=== PATIENT | female | born 1970 | race African-American/Black ===

== ENCOUNTER 2021-08-25 18:39 | Emergency (ER) | payer BC ==
[~2021-08-25] VITALS: Ht 170.2 cm; Wt 90.0 kg
[2021-08-25] MEDS ORDERED: IV RINGERS,LACTATED 1000ML 1,000 ML IV ONE (19:00)
[2021-08-25] MEDS ORDERED: ONDANSETRON PF 4 MG/2 ML VIAL. IVP ONE (19:00)
[2021-08-25] MEDS ORDERED: FAMOTIDINE 20 MG/2 ML VIAL IVP ONE (19:00)
[2021-08-25] MEDS ORDERED: MORPHINE SULFATE 4 MG/ML INJ. IVP ONE (19:00)
--- NOTE | 2021-08-25 19:01 | EKG ---
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
[2021-08-25 19:02] LABS: BASO % 0 % (0-3); EOS # 0.1 x10^3/uL (0.0-0.7); EOS % 0 % (0-3); HEMATOCRIT 37.6 % (36.0-47.0); HEMOGLOBIN 12.1 g/dL (12.0-15.5); LYMPH # 1.6 x10^3/uL (1.0-4.8); LYMPH % 8 % (24-48); MEAN CORPUSCULAR HEMOGLOBIN 26 pg (25-35); MEAN CORPUSCULAR HGB CONC 32 g/dL (31-37); MEAN CORPUSCULAR VOLUME 82 fL (79-100); MONO # 0.8 x10^3/uL (0.0-1.1); MONO % 4 % (0-9); NEUT # 16.8 x10^3/uL (1.8-7.7); NEUT % 87 % (31-73); PLATELET COUNT 275 x10^3/uL (140-400); RED BLOOD COUNT 4.59 x10^6/uL (3.50-5.40); RED CELL DISTRIBUTION WIDTH 15.9 % (11.5-14.5); WHITE BLOOD COUNT 19.3 x10^3/uL (4.0-11.0)
[2021-08-25 19:16] LABS: CREATININE 0.8 mg/dL (0.6-1.0); GFR 76.2; POTASSIUM 3.2 mmol/L (3.5-5.1)
--- NOTE | 2021-08-25 19:18 | PHYS DOC ---
Past Medical History Additional Past Medical Histor: uterine fibroids, ovarian cyst Past Surgical History: No Surgical History Adult General Chief Complaint Chief Complaint: ABDOMINAL PAIN HPI HPI The patient is a 50-year-old female with a history of hypertension and who is otherwise healthy. She is a never smoker. 3 days ago she presented to the [facility] emergency department in [place] for evaluation of left flank pain which had radiated down to the left lower quadrant of the abdomen. She was evaluated with labs and CT imaging. Labs showed a white count of 12.9, hemoglobin of 12.8 and were otherwise unremarkable. CT of the abdomen and pelvis with IV contrast showed a 3.6 cm left ovarian cyst and findings felt to be suspicious for endometritis, possibly secondary to a slightly malpositioned IUD. Patient was started on empiric doxycycline and Flagyl for endometritis and referred back to her associate professor of counseling to have the IUD addressed. This morning she had her IUD removed and a Nexplanon placed. Patient presents for evaluation of about 1 hour of sharp, focal epigastric discomfort, nonradiating and severe. Associated nausea without vomiting. No associated fevers, upper respiratory congestion/rhinorrhea, cough, sore throat, shortness of breath or chest pain of any kind, lower abdominal pain of any kind, flank pain, midline back pain, dysuria, hematuria, polyuria or oliguria, unusual vaginal discharge or bleeding, changes in bowel habits. Patient is alert and appropriately interactive but in some significant discomfort due to poorly controlled epigastric pain upon initial evaluation here in the emergency department. Vital signs are appropriate here and the patient is in no acute distress. Review of Systems Review of Systems A 12 point review of systems was completed and was negative except where noted in HPI above. Current Medications Current Medications Current Medications Medications (Trade) Dose Ordered Sig/Jonny Start Time Stop Time Status Last Admin Dose Admin Famotidine (Pepcid Vial) 20 mg 1X ONCE 08/25/21 19:00 08/25/21 19:01 DC 08/25/21 19:18 20 MG Info (CONTRAST GIVEN -- Rx MONITORING) 1 each PRN DAILY PRN 08/25/21 21:15 08/27/21 21:14 Iohexol (Omnipaque 350 Mg/ml) 100 ml 1X ONCE 08/25/21 21:15 08/25/21 21:16 DC 08/25/21 21:38 100 ML Morphine Sulfate (Morphine Sulfate) 4 mg 1X ONCE 08/25/21 19:00 08/25/21 19:01 DC 08/25/21 19:18 4 MG Multi-Ingredient Mouthwash/Gargle (Gi Cocktail) 20 ml 1X ONCE 08/25/21 20:30 08/25/21 20:31 DC 08/25/21 20:40 20 ML Ondansetron HCl (Zofran) 4 mg 1X ONCE 08/25/21 19:00 08/25/21 19:01 DC 08/25/21 19:18 4 MG Potassium Chloride (Klor-Con) 40 meq 1X ONCE 08/25/21 22:45 08/25/21 22:46 DC 08/25/21 23:02 40 MEQ Ringer's Solution 1,000 ml @ 999 mls/hr 1X ONCE 08/25/21 19:00 08/25/21 20:00 DC 08/25/21 19:18 999 MLS/HR Allergies Allergies Allergies Coded Allergies Type Severity Reaction Last Updated Verified No Known Drug Allergies 08/25/21 No Physical Exam Physical Exam 50-year-old female appearing nontoxic and in no acute distress. Head is normocephalic and atraumatic. Neck is supple and nontender. Oropharynx is moist. Lungs are clear to auscultation at all stations. There is a normal S1 and S2 without rubs or gallops and capillary refill is appropriate, less than 2 seconds globally. Abdomen is soft, nondistended and with mild focal epigastric tenderness to palpation without rebound or guarding. Very mild right upper quadrant tenderness to palpation without rebound or guarding. No lower quadrant abdominal tenderness to palpation. Skin is warm and dry without cyanosis, clubbing or edema. Psychiatrically, the patient demonstrates appropriate mood and affect and is alert. Evaluation of the extremities reveals BUEs and BLEs neurovascularly intact distally with strength out of 5, sensation intact light touch in all nerve distributions, radial, DP and PT pulses 2+ and equal bilaterally, capillary refill less than 2 seconds, hands and feet warm and well- perfused. No dependent peripheral edema distally. No calf tenderness or swelling bilaterally. Homans test is negative bilaterally. Current Patient Data Vital Signs Vital Signs Date Time Temp Pulse Resp B/P (MAP) Pulse Ox O2 Delivery O2 Flow Rate FiO2 08/25/21 22:38 70 159/76 (103) 100 Room Air 08/25/21 19:18 16 08/25/21 18:40 97.4 97.4 Lab Values Laboratory Tests Test 08/25/21 18:45 08/25/21 19:26 08/25/21 22:57 White Blood Count 19.3 x10^3/uL (4.0-11.0) H Red Blood Count 4.59 x10^6/uL (3.50-5.40) Hemoglobin 12.1 g/dL (12.0-15.5) Hematocrit 37.6 % (36.0-47.0) Mean Corpuscular Volume 82 fL (79-100) Mean Corpuscular Hemoglobin 26 pg (25-35) Mean Corpuscular Hemoglobin Concent 32 g/dL (31-37) Red Cell Distribution Width 15.9 % (11.5-14.5) H Platelet Count 275 x10^3/uL (140-400) Neutrophils (%) (Auto) 87 % (31-73) H Lymphocytes (%) (Auto) 8 % (24-48) L Monocytes (%) (Auto) 4 % (0-9) Eosinophils (%) (Auto) 0 % (0-3) Basophils (%) (Auto) 0 % (0-3) Neutrophils # (Auto) 16.8 x10^3/uL (1.8-7.7) H Lymphocytes # (Auto) 1.6 x10^3/uL (1.0-4.8) Monocytes # (Auto) 0.8 x10^3/uL (0.0-1.1) Eosinophils # (Auto) 0.1 x10^3/uL (0.0-0.7) Basophils # (Auto) 0.0 x10^3/uL (0.0-0.2) Segmented Neutrophils % 81 % (35-66) H Band Neutrophils % 4 % (0-9) Lymphocytes % 12 % (24-48) L Monocytes % 3 % (0-10) Toxic Granulation Slight Toxic Vacuolation Slight Platelet Estimate Adequate (ADEQUATE) Sodium Level 140 mmol/L (136-145) Potassium Level 3.2 mmol/L (3.5-5.1) L Chloride Level 104 mmol/L (98-107) Carbon Dioxide Level 25 mmol/L (21-32) Anion Gap 11 (6-14) Blood Urea Nitrogen 14 mg/dL (7-20) Creatinine 0.8 mg/dL (0.6-1.0) Estimated GFR (Cockcroft-Gault) 76.2 BUN/Creatinine Ratio 18 (6-20) Glucose Level 142 mg/dL (70-99) H Calcium Level 9.0 mg/dL (8.5-10.1) Total Bilirubin 0.8 mg/dL (0.2-1.0) Aspartate Amino Transferase (AST) 30 U/L (15-37) Alanine Aminotransferase (ALT) 29 U/L (14-59) Alkaline Phosphatase 70 U/L (46-116) Troponin I High Sensitivity 5 ng/L (4-50) 5 ng/L (4-50) Total Protein 7.6 g/dL (6.4-8.2) Albumin 3.4 g/dL (3.4-5.0) Albumin/Globulin Ratio 0.8 (1.0-1.7) L Lipase 43 U/L (73-393) L Urine Color Yellow Urine Clarity Cloudy Urine pH 7.0 (<5.0-8.0) Urine Specific [place] 1.020 (1.000-1.030) Urine Protein Negative mg/dL (NEG-TRACE) Urine Glucose (UA) Negative mg/dL (NEG) Urine Ketones (Stick) >=80 mg/dL (NEG) Urine Blood Large (NEG) Urine Nitrite Negative (NEG) Urine Bilirubin Negative (NEG) Urine Urobilinogen Dipstick 1.0 mg/dL (0.2 mg/dL) Urine Leukocyte Esterase Trace (NEG) Urine RBC Tntc /HPF (0-2) Urine WBC 1-4 /HPF (0-4) Urine Squamous Epithelial Cells Few /LPF Urine Bacteria 0 /HPF (0-FEW) Urine Mucus Slight /LPF Urine Test Negative (NEG) Laboratory Tests 08/25/21 18:45 Laboratory Tests 08/25/21 18:45 EKG EKG Sinus rhythm, rate 59, no acute ST elevation or depression, NE 190, QRS 100, QTc 418, EP interpretation. Nonischemic tracing, intervals appropriate. Radiology/Procedures Radiology/Procedures EXAMINATION: CTA chest, abdomen and pelvis with IV contrast. INDICATION:50 years, Female, upper abdominal pain, leukocytosis, IUD removed today. TECHNIQUE: Axial CTA images of the chest, abdomen and pelvis were obtained. MIP Coronal and sagittal reformatted Of the chest performed. Coronal and sagittal reformats of the abdomen and pelvis performed. COMPARISON: None. Exposure: One or more of the following individualized dose reduction techniques were utilized for this examination: 1. Automated exposure control 2. Adjustment of the mA and/or kV according to patient size 3. Use of iterative reconstruction technique. FINDINGS: CHEST: Visualized thyroid and esophagus are unremarkable. No lymphadenopathy in the chest by size criteria. Large calcified subcarinal lymph nodes. Normal cardiac size with no pericardial effusion. No coronary artery atherosclerotic calcifications. Normal caliber thoracic aorta and pulmonary arteries. Evaluation for pulmonary embolism is limited due to contrast bolus timing. No central pulmonary embolism to the proximal lobar level. Great vessels are patent. Central airways are patent. No focal consolidation, pleural effusion or pneumothorax. Dependent subsegmental atelectasis in bibasilar lungs. No suspicious pulmonary nodule. Calcified granulomas in the right middle lobe. ABDOMEN/PELVIS: Normal morphology of the liver with homogeneous enhancement. No suspicious focal hepatic lesion. There is a 2.5 cm fluid density lesion in subcapsular right hepatic lobe, likely simple cyst. Mild periportal edema. Contracted gallbladder which limits evaluation. No biliary ductal dilation. Unremarkable spleen and pancreas. No adrenal nodule. No hydronephrosis or nephrolithiasis in either kid lyle. Subcentimeter hypodensities in both renal cortices, too small to characterize. Small hiatal hernia. No bowel obstruction. Normal appendix. Normal caliber abdominal aorta. Mesenteric arteries and portal veins are patent. No pneumoperitoneum or ascites. No lymphadenopathy in the abdomen or pelvis by size criteria. Enlarged uterus with lobulated contour and ill-defined masses obscuring endomet rium. No pelvic free fluid. There is a 3.8 cm benign-appearing left adnexal cyst. MUSCULOSKELETAL STRUCTURES: No acute osseous process or suspicious lesion. IMPRESSION: 1. Evaluation for pulmonary embolism is limited due to contrast bolus timing. No evidence of central pulmonary embolism to the proximal lobar level. 2. Enlarged uterus with lobulated contour and ill-defined masses, probably representing fibroid changes. Correlate with patient history and consider pelvic ultrasound. 3. A 3.8 cm benign-appearing left adnexal cyst. Benign, no follow-up required. White paper of the ACR incidental findings, committe II on adnexal findings ((J Am Leoncio Radiol 2013;10:675-68). Electronically signed by: Mellissa Dodd MD (08/25/2021 9:58 PM) LEIGHANNBOB DICTATED and SIGNED BY: MELLISSA DODD MD DATE: 08/25/[id number] 0 EXAMINATION: US ABDOMEN LIMITED INDICATION: 50 years, Female, right upper quadrant/epigastric pain. COMPARISON: None TECHNIQUE: Grayscale, color Doppler and limited spectral Doppler images of the right upper quadrant were obtained. FINDINGS: LIVER: ECHOGENICITY: Normal. PARENCHYMA: Homogeneous echotexture. No discrete focal lesion. INTRAHEPATIC BILE DUCTS: Nondilated. PORTAL VEIN: Patent with normal hepatopedal flow. GALLBLADDER: GALLBLADDER WALL THICKNESS: 2 mm. MORPHOLOGY: Normal morphology. No pericholecystic free fluid. LUMEN: Normal. COMMON BILE DUCT DIAMETER: 2.7 mm. RIGHT KIDNEY: MEASURES: 10.6 cm in length. MORPHOLOGY/PARENCHYMA: Normal corticomedullary differentiation with no shadowing calculus or discrete masses. COLLECTING SYSTEM: No hydronephrosis. PANCREAS: VISUALIZED PORTIONS: Entire. APPEARANCE: Within normal limits. OTHER: RETROPERITONEUM, INFERIOR VENA CAVA: Normal caliber. AORTA: Normal caliber. FLUID:No free fluid. IMPRESSION: Unremarkable right upper abdomen ultrasound. Electronically signed by: Mellissa Dodd MD (08/25/2021 9:13 PM) DAMIEN DICTATED and SIGNED BY: MELLISSA DODD MD DATE: 08/25/[id number] 0 EXAMINATION: Abdominal complete acute radiograph. VIEWS: Single view of the chest and 2 views of the abdomen COMPARISON: None INDICATION: 50 years, Female, right upper quadrant/epigastric pain. FINDINGS: Nonobstructive bowel gas pattern. No pneumoperitoneum.No abnormal intra- abdominal calcifications. Normal cardiac mediastinal silhouette. No focal consolidation, pleural effusion or pneumothorax. No acute process process. IMPRESSION: 1. No acute chest findings. 2. Nonobstructive bowel gas pattern. Electronically signed by: Mellissa Dodd MD (08/25/2021 8:04 PM) LEIGHANNBOB DICTATED and SIGNED BY: MELLISSA DODD MD DATE: 08/25/[id number] 0 Course & Med Decision Making Course & Med Decision Making We will start with labs, urine, acute abdominal series and right upper quadrant ultrasound and will give IV fluids and medication for nausea and discomfort as noted and will then reevaluate. 2245: Patient resting comfortably in bed on serial reassessments. Reports near complete resolution of her presenting abdominal discomfort. She feels much, much better after interventions as per flow sheet here in the emergency department. Patient does have a leukocytosis but otherwise labs, EKG and advanced imaging as above are without evidence of acute process and are without imaging or laboratory correlate either for her symptoms or for the leukocytosis. Potassium slightly low and has been repleted. Patient now tells me that she had started to eat some steak tips when she developed the abdominal discomfort. Possibility of some gastritis in the setting of recently starting doxycycline and Flagyl. No evidence of emergency condition is identified. In view of reassuring work-up in this well-appearing middle-aged female who is feeling much better, will discharge home to follow-up closely with primary care in the next 1 to 2 days. Will discharge with a course of Tylenol and Pepcid. Patient understands that if she feels worse instead of better or develops other new symptoms of concern that she should return to the emergency department right away for reevaluation. All questions are answered. Dragon Disclaimer Dragon Disclaimer This electronic medical record was generated, in whole or in part, using a voice recognition dictation system. Departure Departure Impression: Primary Impression: Acute epigastric pain Disposition: HOME / SELF CARE / HOMELESS Condition: IMPROVED Patient Instructions: Abdominal Pain (Nonspecific) Additional Instructions: Follow-up very closely with your primary care doctor in the office in the next 1 to 2 days for a reevaluation of your symptoms and discussion of next best steps in care. Drink plenty of fluids and get plenty of rest. Take a 500 mg extra strength Tylenol pill every 6 hours as needed for discomfort. Begin taking the Pepcid antiacid medication twice a day and take it for the next 2 weeks as prescribed to help prevent belly discomfort. Continue taking the antibiotics as already prescribed a few days ago and take them until they are completely gone. Return to the emergency department right away for worsening symptoms of any kind or with any other new symptoms of concern. Scripts Famotidine (ACID CONTROLLER) 20 Mg Tablet 20 MG PO BID for 14 Days, #28 TAB Prov: JC HERNANDEZ MD 08/25/21 Acetaminophen (ACETAMINOPHEN) 500 Mg Tablet 1 TAB PO PRN Q6HRS PRN for pain or fever, #50 TAB 0 Refills Prov: JC HERNANDEZ MD 08/25/21 JC HERNANDEZ MD Aug 25, 2021 19:18
[2021-08-25 19:22] LABS: ALBUMIN 3.4 g/dL (3.4-5.0); ALBUMIN/GLOBULIN RATIO 0.8 (1.0-1.7); TOTAL BILIRUBIN 0.8 mg/dL (0.2-1.0); TOTAL PROTEIN 7.6 g/dL (6.4-8.2)
[2021-08-25 19:32] LABS: % BANDS 4 % (0-9); % LYMPHS 12 % (24-48); % MONOS 3 % (0-10); % SEGS 81 % (35-66); PLT ESTIMATE ADEQUATE (ADEQUATE); TOXIC GRANULATION SLIGHT; TOXIC VACUOLATION SLIGHT
[2021-08-25 19:36] LABS: BILIRUBIN,URINE NEGATIVE (NEG); CLARITY,URINE CLOUDY; COLOR,URINE YELLOW; NITRITE,URINE NEGATIVE (NEG); PROTEIN,URINE NEGATIVE (NEG-TRACE)
[2021-08-25 19:44] LABS: BACTERIA,URINE 0 /HPF (0-FEW); RBC,URINE TNTC /HPF (0-2)
--- NOTE | 2021-08-25 20:06 | RAD ---
EXAMINATION: Abdominal complete acute radiograph. VIEWS: Single view of the chest and 2 views of the abdomen COMPARISON: None INDICATION: 50 years, Female, right upper quadrant/epigastric pain. FINDINGS: Nonobstructive bowel gas pattern. No pneumoperitoneum.No abnormal intra-abdominal calcifications. Nor mal cardiac mediastinal silhouette. No focal consolidation, pleural effusion or pneumothorax. No acut e process process. IMPRESSION: 1. No acute chest findings. 2. Nonobstructive bowel gas pattern. Electronically signed by: Tanisha Dodd MD (08/25/2021 8:04 PM) [facility]
[2021-08-25] MEDS ORDERED: LIDO:MAALOX 1:1 20 ML SINGLE DOSE. SWSW ONE (20:30)
[2021-08-25] MEDS ORDERED: CONTRAST GIVEN. MC PRN (21:15)
[2021-08-25] MEDS ORDERED: IOHEXOL 350 MG/ML 100 ML VIAL. IV ONE (21:15)
--- NOTE | 2021-08-25 21:16 | RAD ---
EXAMINATION: US ABDOMEN LIMITED INDICATION: 50 years, Female, right upper quadrant/epigastric pain. COMPARISON: None TECHNIQUE: Grayscale, color Doppler and limited spectral Doppler images of the right upper quadrant w ere obtained. FINDINGS: LIVER: ECHOGENICITY: Normal. PARENCHYMA: Homogeneous echotexture. No discrete focal lesion. INTRAHEPATIC BILE DUCTS: Nondilated. PORTAL VEIN: Patent with normal hepatopedal flow. GALLBLADDER: GALLBLADDER WALL THICKNESS: 2 mm. MORPHOLOGY: Normal morphology. No pericholecystic free fluid. LUMEN: Normal. COMMON BILE DUCT DIAMETER: 2.7 mm. RIGHT KIDNEY: MEASURES: 10.6 cm in length. MORPHOLOGY/PARENCHYMA: Normal corticomedullary differentiation with no shadowing calculus or discrete masses. COLLECTING SYSTEM: No hydronephrosis. PANCREAS: VISUALIZED PORTIONS: Entire. APPEARANCE: Within normal limits. OTHER: RETROPERITONEUM, INFERIOR VENA CAVA: Normal caliber. AORTA: Normal caliber. FLUID:No free fluid. IMPRESSION: Unremarkable right upper abdomen ultrasound. Electronically signed by: Tanisha Dodd MD (08/25/2021 9:13 PM) [facility]
[2021-08-25 21:46] LABS: U PREG PATIENT NEGATIVE (NEG)
--- NOTE | 2021-08-25 22:01 | RAD ---
EXAMINATION: CTA chest, abdomen and pelvis with IV contrast. INDICATION:50 years, Female, upper abdominal pain, leukocytosis, IUD removed today. TECHNIQUE: Axial CTA images of the chest, abdomen and pelvis were obtained. MIP Coronal and sagittal reformatted Of the chest performed. Coronal and sagittal reformats of the abdomen and pelvis performed. COMPARISON: None. Exposure: One or more of the following individualized dose reduction techniques were utilized for thi s examination: 1. Automated exposure control 2. Adjustment of the mA and/or kV according to patient size 3. Use of iterative reconstruction technique. FINDINGS: CHEST: Visualized thyroid and esophagus are unremarkable. No lymphadenopathy in the chest by size criteria. Large calcified subcarinal lymph nodes. Normal cardiac size with no pericardial effusion. No coronary artery atherosclerotic calcifications. Normal caliber thoracic aorta and pulmonary arteries. Evaluat ion for pulmonary embolism is limited due to contrast bolus timing. No central pulmonary embolism to the proximal lobar level. Great vessels are patent. Central airways are patent. No focal consolidation, pleural effusion or pneumothorax. Dependent subse gmental atelectasis in bibasilar lungs. No suspicious pulmonary nodule. Calcified granulomas in the r ight middle lobe. ABDOMEN/PELVIS: Normal morphology of the liver with homogeneous enhancement. No suspicious focal hepatic lesion. Ther e is a 2.5 cm fluid density lesion in subcapsular right hepatic lobe, likely simple cyst. Mild peripo rtal edema. Contracted gallbladder which limits evaluation. No biliary ductal dilation. Unremarkable spleen and pancreas. No adrenal nodule. No hydronephrosis or nephrolithiasis in either kidney. Subcen timeter hypodensities in both renal cortices, too small to characterize. Small hiatal hernia. No bowel obstruction. Normal appendix. Normal caliber abdominal aorta. Mesenteri c arteries and portal veins are patent. No pneumoperitoneum or ascites. No lymphadenopathy in the abd omen or pelvis by size criteria. Enlarged uterus with lobulated contour and ill-defined masses obscuring endometrium. No pelvic free f luid. There is a 3.8 cm benign-appearing left adnexal cyst. MUSCULOSKELETAL STRUCTURES: No acute osseous process or suspicious lesion. IMPRESSION: 1. Evaluation for pulmonary embolism is limited due to contrast bolus timing. No evidence of central pulmonary embolism to the proximal lobar level. 2. Enlarged uterus with lobulated contour and ill-defined masses, probably representing fibroid cronin ges. Correlate with patient history and consider pelvic ultrasound. 3. A 3.8 cm benign-appearing left adnexal cyst. Benign, no follow-up required. White paper of the ACR incidental findings, committe II on adnexal findings ((J Am Leoncio Radiol 2013;1 0:675-68). Electronically signed by: Tanisha Dodd MD (08/25/2021 9:58 PM) [facility]
[2021-08-25 22:38] VITALS: BP 159/76
[2021-08-25] MEDS ORDERED: POTASSIUM CHLORIDE 20 MEQ TABLET.ER. PO ONE (22:45)
[2021-08-25] MEDS ORDERED: ACET500T68 PO (22:55)
[2021-08-25] MEDS ORDERED: FAMO-54 PO (22:55)
== END 2021-08-26 00:05 | disposition home or self-care (01) ==
LOC: ER 18:39
DX: R10.13 Epigastric pain (principal); R11.0 Nausea
CPT/HCPCS: 36415; 71275; 74022; 74177; 76705; 80053; 81001; 81025; 83690; 84484; 85007; 85025; 87086; 93005; 96361; 96374; 96375; 99285; J2270; J2405; J3490; J7120; Q9967